=== PATIENT | female | born 1995 | race African-American/Black ===

== ENCOUNTER 2025-04-15 13:40 | Emergency (ER) | payer OTHER, SELFPAY ==
--- NOTE | ~2025-04-15 | CT_ITS ---
CLINICAL HISTORY: right sided neck swelling CT soft tissue neck with contrast Comparison: None provided Findings: Small retention cyst left maxillary sinus. No prevertebral fluid. Epiglottis is within normal limits. Pharyngeal mucosal space and parapharyngeal fat are normal. Salivary glands are within normal limits. No sialoliths. No suspicious thyroid nodules. No consolidation at the lung apices. No acute fractures. IMPRESSION: No acute findings. This document has been electronically signed by: Ryley Fairbanks MD on 04/15/2025 19:42:22
[2025-04-15 14:08] VITALS: BP 131/73; PULSE 88; RESP 16; TEMP 36.8; O2SAT 99; BMI 26.3
--- NOTE | 2025-04-15 14:09 | ED_ITS ---
HPI - General Adult General Chief complaint: Neck Pain/Injury Stated complaint: Sore throat Time Seen by Provider: 04/15/25 18:10 Source: patient Mode of arrival: ambulatory Limitations: no limitations History of Present Illness ED Provider: Leonid MONTERROSO HPI narrative: The patient is a 29-year-old female presenting to the ED reporting approximately 2 weeks ago she was experiencing headache, sore throat, and generalized malaise. Patient reports she was seen at urgent care on 04/07 and sent to [facility] ED, reports she had extensive testing which showed no acute findings and was discharged home. The patient reports symptoms began to improve slightly, however yesterday she noted increasing swelling and tenderness of the right neck with increased pain with swallowing and pain when talking. The patient reports headache has resolved, denies associated fever/chills, nausea, vomiting, chest pain, shortness of breath, cough, recent sick contacts, or recent trauma. The patient has attempted Tylenol for this complaint without significant relief. Related Data Allergies Allergy/AdvReac Type Severity Reaction Status Date / Time peanut Allergy Anaphylaxis Verified 04/15/25 14:11 Review of Systems 2 Review of Systems: Yes all other systems are reviewed and are negative PMFSH Social History Social History Advance Directives: No Advance Directives Information Provided: Yes Do you have a plan to hurt others: No Plan Physical Exam ED Vital Signs: Vital Signs - 24 hr 04/15/25 14:08 Temperature 98.3 F Pulse Rate 88 Respiratory Rate 16 Blood Pressure 131/73 Pulse Oximetry 99 Oxygen Delivery Method Room Air BMI result Body Mass Index 26.3 CONSTITUTIONAL: The patient appears non-toxic, well nourished and in no acute distress. Vital signs as documented. HEAD: Atraumatic, normocephalic. EYES: EOMs grossly intact, pupils equal, conjunctiva clear, no exudate. ENT: Nares patent, no discharge. Airway patent, no audible stridor, visible mucosa is pink and moist without noted lesions. Posterior pharynx shows midline nonedematous uvula, no peritonsillar or tonsillar swelling, no tonsillar exudate. No erythema. No muffled voice or trismus. NECK: trachea is midline, there is moderate tenderness to palpation of the anterior cervical chain on the right, negative on the left, no overlying erythema. no other obvious masses or gross abnormalities. CHEST: Symmetric movement, normal appearance. LUNGS: Non-labored work of breathing. CARDIAC: No evidence of hypoperfusion. ABDOMEN: Nondistended, no obvious injury. : Deferred. EXTREMITIES: Moves all extremities spontaneously without reported pain. No obvious injury or deformity noted. NEURO: Alert and oriented x3, CN II-XII appear grossly intact. Cerebellar Functioning grossly intact. Speech clear and appropriate. SKIN: Warm, dry, color appropriate. No rashes or lesions noted. Course Course Course Narrative: This is an RME: Additional HPI, ROS, PE not included below will be deferred to primary provider. RME assessment and note performed by: Mary Biggs PA-C This is a 33-yunn-iux-female who presents to the Er with complaint of sore throat. Reports Apr 02 had headaches, and chest pain, went to urgent care where she was sent to the [facility] ER > given toradol and reglan and d/c home. Went to urgent care and started to have swelling in her neck. Pt with anterior cervical induration noted, very tender. no submandibular swelling. Oral pharynx widely patent. Plan: Labs, likely needed diagnostic imaging Medical Decision Making Medical Decision Making MDM Narrative: 7:07 PM 04/15/2025 (Tess MONTERROSO): Patient is a 29-year-old female presenting to the ED for evaluation of right-sided neck pain and tenderness which began yesterday after she has been experiencing 2 weeks of generalized sore throat, headache, and viral URI symptoms. The patient in the ED appears in no acute distress, airways patent, no findings concerning for peritonsillar or posterior pharyngeal abscess. The patient's right anterior cervical chain is tender. The patient's laboratory evaluation shows normal CRP and ESR, negative Monospot, strep, RSV, COVID, and influenza. The patient's TSH is normal. Remainder of laboratory evaluation shows no evidence of leukocytosis, significant anemia, CANDIS, or electrolyte abnormality. The patient's LFTs are unremarkable. The patient is likely suffering from anterior cervical lymphadenopathy secondary to a recent viral URI. Patient was ordered for CT soft tissue neck during RMA process, we will follow up CT imaging to confirm no necrotic lymph nodes or deep space infection. Pending unremarkable CT patient will be discharged with supportive care, anti-inflammatories, warm compresses, and follow up with PCP. 7:59 PM 04/15/2025 (Tess MONTERROSO): CT negative for acute pathology. Patient will be discharged as described above. Admission/Observation Consideration of admission/observation: Escalation of care including admission/observation considered Lab Data MDM Lab Attestation statement: I reviewed the patient's lab results. 04/15/25 15:21 04/15/25 15:21 Labs: Lab Results 04/15/25 Range/Units 15:21 WBC 8.8 (4.8-10.8) X10*3/uL RBC 4.17 L (4.20-5.50) X10*6/uL Hgb 11.7 L (12.0-16.0) g/dl Hct 36.5 L (37.0-47.0) % MCV 87.5 (80.0-98.0) fL MCH 28.1 (27.0-33.0) pg MCHC 32.1 (31.0-35.0) g/dl RDW 12.8 (11.0-16.0) % Plt Count 222 (160-400) X10*3/uL MPV 9.8 (9.4-12.3) fL Immature Gran % (Auto) 0.3 (0.0-0.4) % Neut % (Auto) 70.4 (45-73) % Lymph % (Auto) 21.9 (20-40) % [place] % (Auto) 4.7 (2-11) % Eos % (Auto) 2.5 (0-4) % Baso % (Auto) 0.2 (0-2) % Lymph # (Auto) 1.9 (1.2-4.9) X10*3/uL [place] # (Auto) 0.4 (0.1-1.2) X10*3/uL Eos # (Auto) 0.2 (0.0-0.4) X10*3/uL Baso # (Auto) 0.0 (0.0-0.2) X10*3/uL Abs Immat Gran (auto) 0.03 (0.00-0.03) X10*3/uL Absolute Neuts (auto) 6.2 (2.0-8.3) x10*3/uL Absolute Nucleated RBC 0.000 (0.0-0.012) X10*3/uL Nucleated RBC % (auto) 0.0 (0.0-0.2) /100WBC ESR 14 (0-20) MM/HR Sodium 139 (135-145) mmol/L Potassium 3.8 (3.3-5.1) mmol/L Chloride 106 (96-108) mmol/L Carbon Dioxide 25 (22-29) mmol/L Anion Gap 12 (12-20) BUN 6 L (9-16) mg/dL Creatinine 0.63 (0.5-1.4) mg/dL Estim Creat Clear Calc 127.2 Estimated GFR > 60 Random Glucose 88 (60-115) mg/dL Calcium 9.0 (8.4-10.2) mg/dL Total Bilirubin 0.4 (0.0-1.0) mg/dL Direct Bilirubin 0.1 (0.0-0.5) mg/dL AST 20 (5-31) U/L ALT 9 (0-31) U/L Alkaline Phosphatase 73 (39-117) U/L C-Reactive Protein 0.15 (< or = 0.50) mg/dL Total Protein 7.2 (6.5-8.0) g/dL Albumin 4.6 (3.5-5.0) g/dL TSH 1.06 (0.32-4.0) uIU/mL Beta HCG, Quant < 2 mIU/mL Monoscreen Negative (Negative) Influenza Type A (PCR) NEGATIVE (Negative) Influenza Type B (PCR) NEGATIVE (Negative) RSV RNA Qual (PCR) NEGATIVE (Negative) SARS-CoV-2 RNA (RT-PCR) NEGATIVE (Negative) S. pyogenes GrpA JOE Negative (Negative) Radiology Impression Discussion of test interpretation with radiology: I have reviewed the radiologist's reading. Radiologist Impression: CLINICAL HISTORY: right sided neck swelling CT soft tissue neck with contrast Comparison: None provided Findings: Small retention cyst left maxillary sinus. No prevertebral fluid. Epiglottis is within normal limits. Pharyngeal mucosal space and parapharyngeal fat are normal. Salivary glands are within normal limits. No sialoliths. No suspicious thyroid nodules. No consolidation at the lung apices. No acute fractures. IMPRESSION: No acute findings. This document has been electronically signed by: Ryley Fairbanks MD on 04/15/2025 19:42:22 Prescription Management I considered prescription management with: Pain Medication and Antibiotic Discharge Plan Discharge Clinical Impression: Anterior cervical adenopathy Patient Disposition: Home, Self-Care Instructions: Lymphadenopathy (ED) Additional Instructions: Thank you for choosing [facility]'s Emergency Department for your care today. Thankfully your laboratory evaluation, viral swabs, Monospot screening, CT, and exam today are all markedly reassuring. There was no evidence of any acute infectious or other dangerous process requiring admission to the hospital or continued ED observation, and it is safe to discharge you home. Your symptoms are likely due to inflamed lymph nodes in your right neck secondary to a recent viral upper respiratory infection or possible viral sinusitis. At this time there is no indication for antibiotic therapy. Your swollen and painful lymph nodes should improve in the next few days. You should take alternating (staggered) doses of ibuprofen 600mg and Tylenol 1000mg every 4 hours as needed for any additional pain. Please apply warm moist compresses to the area every 1-2 hours for approximately 20 minutes. Please stay well hydrated and get plenty of rest. Please follow up with your primary care physician for re-evaluation, additional management of your symptoms, and continued preventative care. If you do not have a primary care physician, please call the [facility] at [phone] to establish a new primary care physician. While waiting to establish your new primary care physician, you can call our [facility] at [phone] for non-emergency needs. Please return to the emergency department if you develop a severe or sudden change in your symptoms, a fever over 100.4 that does not improve with Tylenol or Ibuprofen, recurrent vomiting, or any other new or worsening symptoms or concerns. Referrals: Physician,None [Primary Care Provider, Medical] Clinical Impression: Anterior cervical adenopathy Print Language: Iraqi
[2025-04-15 15:27] LABS: MANUAL DIFF FLAG NO
[2025-04-15 15:30] LABS: Hematocrit 36.5 % (37.0-47.0); Hemoglobin 11.7 g/dl (12.0-16.0); Imm Gran Abs Auto 0.03 X10*3/uL (0.00-0.03); Imm Gran Pct Auto 0.3 % (0.0-0.4); Lymphocytes Absolute Auto 1.9 X10*3/uL (1.2-4.9); Mean Corpuscular HGB Conc 32.1 g/dl (31.0-35.0); Mean Corpuscular Hemoglobin 28.1 pg (27.0-33.0); Mean Corpuscular Volume 87.5 fL (80.0-98.0); NRBC Abs Auto 0.000 X10*3/uL (0.0-0.012); NRBC Pct Auto 0.0 /100WBC (0.0-0.2); Platelet Count 222 X10*3/uL (160-400); Red Blood Count 4.17 X10*6/uL (4.20-5.50); White Blood Count 8.8 X10*3/uL (4.8-10.8)
[2025-04-15 15:46] LABS: Alanine Aminotransferase 9 U/L (0-31); Albumin Level 4.6 g/dL (3.5-5.0); Alkaline Phosphatase 73 U/L (39-117); Anion Gap 12 (12-20); Aspartate Amino Transferase 20 U/L (5-31); Blood Urea Nitrogen 6 mg/dL (9-16); Calcium 9.0 mg/dL (8.4-10.2); Carbon Dioxide 25 mmol/L (22-29); Chloride 106 mmol/L (96-108); Creatinine Clr Calc Pharmacy 127.2; Estimated Glomerular Filt Rate > 60; Potassium 3.8 mmol/L (3.3-5.1); Sodium 139 mmol/L (135-145); Total Protein 7.2 g/dL (6.5-8.0)
[2025-04-15 15:50] LABS: IDNOW Serial# 58CA691E
[2025-04-15 15:51] LABS: Strep A Nucleic Acid Negative (Negative)
[2025-04-15 16:05] LABS: Resp Syncy Virus RNA Qual PCR NEGATIVE (Negative); SARS COV2 PCR INHOUSE NEGATIVE (Negative)
--- NOTE | 2025-04-15 18:06 | PC.NURSE ---
IV placed in L AC, solar technician Felice made aware patient is in PIT chairs w/ IV, will scan when able.
--- OUTSIDE RECORDS SUMMARY | 2025-04-15 18:07 | XMS_ITS | Clinical Summary ---
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 Role Phone Unavailable Primary Care Provider Unavailabl e Immunizations Immunization Administration Dates Next Due DTaP 02/04/2002, 8,07/12/1997,04/23,02/08/1997 HPV, Quadrivalent 03/13/2011,07/18/2010,04/02/20 08 Hep B, ped/adol 12/16/1997,02/08/1997,1996 Hib (PRP-T) 03/07/1998, 7,04/23/1997,02/08 Influenza 07/10/2007 Influenza, injectable, quadrivalent 09/20/2014,0 05/14/2012,05/28/2009 Influenza, injectable, quadr ivalent, preservative free 06/05/2013,05/08/2011 MMR 02/04/2002,12/16/1997 Meningococcal Conj (Menactra) MCV4P 06/05/2013,0 04/02/2008 OPV 12/16/1997,04/23/1997,02/08/1997 Tdap 04/02/2008 Varicella 06/02/1997 Family History Relation Name Status Comments Father Alive allergies outdo or, pets age: 40 Father's Sister Alive two sisters, older one borderline DM diagnosed with DMII WO CMP NT [facility] UNCNTR Maternal Grandfather Alive alcohol ic, ?CHF diagnosed with NONPSYCHOT BRAIN SYN NOS Maternal Grandmother Alive MS Mother Alive healthy age: 40 Paternal Grandfather Alive DM, mary ann quintan[place] addict diagnosed with DMII WO CMP NT ST UNCNTR, NONPSYCHOT BRAIN SYN NOS Paternal Grandmother Alive healthy Social History Tobacco Use Types Packs/Day Years Used Date Smoking Tobacco: Never Assessed Comments Unknown Sex and Gender Information Value Date Recorded Sex Assigned at Not on file Legal Sex Female 6:12 PM EDT Gender Identity Not on file Sexual Orientation Not on file Last Filed Vital Signs Vital Sign Reading Time Taken Comments Blood Pressure 118/66 02/07/2015 12:00 AM EDT Pulse 91 09/08/2012 12:00 AM EST Temperature 36.7 C (98 F) 08/19/2015 12:00 AM EST Respiratory Rate - - Oxygen Saturation 98% 09/08/2012 12:00 AM EST Inhaled Oxygen Concentration - - Weight 51.3 kg (113 lb) 08/19/2015 12:00 AM EST Height 163.8 cm (5' 4.5 ) 08/19/2015 12:00 AM ES T Body Mass Index 19.1 08/19/2015 12:00 AM EST Plan of Treatment Health Maintenance Due Date Last Done Comments IPV Vaccines (4 of 4 - 4-dose series) 2000 12/16/1997, 04/23/1997, 02/08/1997 Varicella Vaccines (1 of 2 - 13+ 2-dose series) 2009 06/02/1997 DTaP,Tdap,and Td Vaccines (7 - Td or Tdap) 04/02/2018 04/02/2008, 02/04/2002, 03/17/1998, Additional history exists COVID-19 Vaccine ( season) 2024 Influenza Vaccines (#1) 2025 09/20/19 15, 06/05/2013, 05/14/2012, Additional history exists Hepatitis B Vaccines Completed 12/16/1997, 02/08/1997, 1996 HIB Vaccines Completed 03/07/1998, 07/03, 04/23/1997, Additional history exists MMR Vaccines Completed 02/04/2002, 12/16/1997 HPV Vaccines Completed 03/13/2011, 07/03, 04/02/2008 Meningococcal Vaccine Completed 06/05/2013, 008 Hepatitis A Vaccines Aged Out No long er eligible based on patient's age to complete this topic Men B Vaccine Aged Out No longer elig ible based on patient's age to complete this topic Pneumococcal Vaccine Aged Out No long er eligible based on patient's age to complete this topic Procedures * Due to [place] state law, this organization might not be sharing sensitive test results. Procedure Name Priority Date/Time Associated Diagnosis Comments CHLAMYDIA AND GONORRHEA, AMPLIFIED Routine 08/22/2015 12:00 AM EST from Last 3 Months or Most Recently Relevant to Health Maintenance Results * Due to [place] [employer] law, this organization might not be sharing sensitive test results. * Chlamydia and Gonorrhoea, Amplified (08/22/2015 12:00 AM EST) URINE CHLAMYDIA AMP PROBE NEGATIVE CONVERTED LABS Comment: No Chlamydia Trachomatis RNA detected in this patient's sample (REFERENCE RANGE/NORMAL VALUE: NOT DETECTED) URINE GC AMP PROBE NEGATIVE C ONVERTED LABS Comment: No Neisseria Gonorrhoeae RNA detected in this patient's sample (REFERENCE RANGE/NORMAL VALUE: NOT DETECTED) NOTE: This test uses muskrat trapper-mediated amplification method to detect rRNA from C.Trachomatis and N.Gonorrhoeae. A negative result does not preclude infection. In the case of a negative urine result, testing of an endocervical(female) or urethral(male) specimen is recommended if there is high clinical suspicion of infection. The performance characteristics of this test have not been evaluated in children. The Aptima Combo2 assay is not intended for the evaluation of suspected sexual abuse or for other medico-legal indications. The ordering provider should assess if the patient had consensual sex without risk of sexual abuse. Consult the [facility] if needed. Contact phone number . Therapeutic failure or success cannot be determined with the Aptima Combo2 assay since nucleic acid may persist following appropriate antimicrobial therapy. The Centers for Disease Control and Prevention (CDC) recommends confirmatory retesting using culture or a different nucleic acid amplification test when positive results occur, if indicated. 08/22/2015 Narrative CONVERTED LABS - 08/22/2015 12:00 AM EST Screening Negative Brianne Schneider 08/19/2015 02:24:25 PM > Yanet Merritt 08/22/2015 05:41:34 PM > Yanet Merritt MD LAB MICROBIOLOGY - GENERAL OR DERABLES Final Result CONVERTED LABS from Last 3 Months or Most Recently Relevant to Health Maintenance
[2025-04-15 20:07] VITALS: BP 131/73; PULSE 88; RESP 16; TEMP 36.8; O2SAT 99
== END 2025-04-15 20:08 | disposition home or self-care (01) ==
PROVIDERS: Physician Assistant Medical; Emergency Provider Emergency Medicine Emergency Medical Services
DX: R59.0 Localized enlarged lymph nodes (principal); J02.9 Acute pharyngitis, unspecified; R51.9 Headache, unspecified; R53.81 Other malaise
CPT/HCPCS: 70491; 80048; 80076; 84443; 84702; 85025; 85652; 86140; 86308; 87637; 87651; 99283; 99284

== ENCOUNTER → 2025-04-15 17:50 | Outpatient (BNV) | payer OTHER, SELFPAY | PROVIDERS: Emergency Provider Emergency Medicine Emergency Medical Services; Visit Provider Radiology Diagnostic Radiology | DX: R22.1 Localized swelling, mass and lump, neck (principal) | CPT/HCPCS: 70491 ==